=== PATIENT | female | born 1960 | race Caucasian/White ===

== ENCOUNTER 2025-02-24 17:45 | Emergency (ER) | payer OTHER ==
[~2025-02-24] VITALS: Ht 152.4 cm; Wt 59.0 kg
[2025-02-24 06:45] VITALS: O2SAT 98
[2025-02-24] MEDS ORDERED: PRED50TA PO (18:20)
[2025-02-24] MEDS ORDERED: NAPR500T6 PO (18:20)
[2025-02-24] MEDS ORDERED: TRAZ-257 PO (18:20)
[2025-02-24] MEDS ORDERED: HYDR-4209 PO (18:20)
[2025-02-24] MEDS ORDERED: SERT100T PO (18:20)
[2025-02-24] MEDS ORDERED: predniSONE 20 MG TABLET ONE (18:22)
[2025-02-24] MEDS ORDERED: HYDROCODONE/APAP 5/325MG TABLET ONE (18:22)
[2025-02-24] MEDS ORDERED: NAPROXEN 250 MG TABLET ONE (18:23)
[2025-02-24] MEDS: HYDROCODONE/APAP 5/325MG TABLET PO ONE (18:29)
[2025-02-24] MEDS: predniSONE 20 MG TABLET PO ONE (18:29)
[2025-02-24] MEDS: NAPROXEN 250 MG TABLET PO ONE (18:30)
[2025-02-24] MEDS: IPRATROPIUM NEB FS 0.5 MG/2.5 ML AMPUL.NEB NEB ONE (18:38)
[2025-02-24] MEDS: ALBUTEROL FS 2.5 MG/3 ML VIAL.NEB NEB ONE (18:38)
[2025-02-24] MEDS ORDERED: IPRATROPIUM NEB FS 0.5 MG/2.5 ML AMPUL.NEB ONE (18:39)
[2025-02-24] MEDS ORDERED: ALBUTEROL FS 2.5 MG/3 ML VIAL.NEB ONE (18:39)
[2025-02-24 18:45] VITALS: O2SAT 98
[2025-02-24] MEDS: SERTRALINE HCL 50 MG TABLET PO STA (18:45)
[2025-02-24 18:55] VITALS: O2SAT 100; O2SAT 99
[2025-02-24 19:33] VITALS: BP 135/98; TEMP 98.1; O2SAT 95
== END 2025-02-24 19:34 | disposition home or self-care (01) ==
LOC: ER 17:59
DX: J44.1 Chronic obstructive pulmonary disease with (acute) exacerbation (principal); G89.29 Other chronic pain; M79.642 Pain in left hand; M79.641 Pain in right hand; M06.9 Rheumatoid arthritis, unspecified; F19.10 Other psychoactive substance abuse, uncomplicated; Z76.0 Encounter for issue of repeat prescription; Z79.52 Long term (current) use of systemic steroids; Z79.899 Other long term (current) drug therapy
CPT/HCPCS: 99285; 94640; J7512